=== PATIENT | female | born 1965 | race Caucasian/White ===

== ENCOUNTER 2019-06-23 17:10 | Emergency (ER) | payer BC ==
[2019-06-23 17:36] VITALS: BP 129/78; PULSE 103
[2019-06-23] MEDS ORDERED: FLU Vacc QS2019-20(6MOS+)/PF 60 MCG/0.5 ML SYRINGE IM ONE (17:45)
--- NOTE | 2019-06-23 17:53 | EDM.PDOC ---
ED HPI GENERAL MEDICAL PROBLEM - General Chief Complaint: Genitourinary Problem Stated Complaint: PAINFUL URINATION Time Seen by Provider: 06/23/19 17:32 Source of Information: Reports: Patient, RN Notes Reviewed History Limitations: Reports: No Limitations - History of Present Illness INITIAL COMMENTS - FREE TEXT/NARRATIVE: Patient is a 54-year-old female who presents to the ED for evaluation of a possible UTI. The patient notes that she is prone to getting bladder infections. She further notes that she had a urology workup last year, and there was no further management needed, nor did they relate any information on why she gets frequent UTIs. The patient states that around 1:30 this afternoon she developed dysuria, frequency and urgency, with suprapubic pain. Patient started pushing her fluids this afternoon, and started drinking some cranberry juice but this is not provided much relief. She notes that it feels as if she is being razor blades. She does have multiple allergies to typical antibiotics used for UTIs. The patient denies any sort of fever/chills, nausea/vomiting/ diarrhea, chest pain and shortness of breath. Abdomen Pain Score (Numeric/FACES): 7 - Related Data Allergies Allergy/AdvReac Type Severity Reaction Status Date / Time nitrofurantoin Allergy Hives Verified 06/23/19 17:32 [From Macrodantin] Sulfa (Sulfonamide Allergy Rash Verified 05/23/16 19:10 Antibiotics) sulfamethoxazole Allergy Hives Verified 06/23/19 17:32 [From Bactrim] trimethoprim [From Bactrim] Allergy Hives Verified 06/23/19 17:32 Home Meds: Home Meds Tiotropium Br/Olodaterol HCl [Stiolto Respimat Inhal [place]] 2 puff IH DAILY 03/06 [History] Past Medical History HEENT History: Reports: Impaired Vision Respiratory History: Reports: Other (See Below) Other Respiratory History: chronic bronchitis Gastrointestinal History: Reports: None Genitourinary History: Reports: Renal Calculus, UTI, Recurrent 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: Other (See Below) Other CURRICULUM ASSISTANT History: fertility Musculoskeletal History: Reports: None - Past Surgical History GI Surgical History: Reports: Cholecystectomy Musculoskeletal Surgical History: Reports: Arthroscopic Procedure, Shoulder Surgery Social & Family History - Family History Family Medical History: Noncontributory - Tobacco Use Smoking Status *Q: Never Smoker - Caffeine Use Caffeine Use: Reports: Soda - Recreational Drug Use Recreational Drug Use: No ED ROS GENERAL - Review of Systems Review Of Systems: See Below Constitutional: Denies: Fever, Chills HEENT: Reports: No Symptoms Respiratory: Denies: Shortness of Breath Cardiovascular: Denies: Chest Pain Endocrine: Reports: No Symptoms GI/Abdominal: Reports: Abdominal Pain (suprapubic). Denies: Constipation, Diarrhea, Nausea, Vomiting : Reports: Dysuria, Frequency, Urgency Musculoskeletal: Reports: No Symptoms Skin: Reports: No Symptoms Neurological: Reports: No Symptoms Psychiatric: Reports: No Symptoms ED EXAM, RENAL/ - Physical Exam Exam: See Below Exam Limited By: No Limitations General Appearance: Alert, WD/WN, No Apparent Distress Respiratory/Chest: No Respiratory Distress, Lungs Clear, Normal Breath Sounds, No Accessory Muscle Use, Chest Non-Tender Cardiovascular: Normal Peripheral Pulses, Regular Rate, Rhythm, No Murmur GI/Abdominal: Normal Bowel Sounds, Soft, No Distention, No Mass, Tender ( suprapubic) Extremities: Normal Inspection, Normal Capillary Refill Neurological: Alert, Oriented, Normal Cognition, No Motor/Sensory Deficits Psychiatric: Normal Affect, Normal Mood Skin Exam: Warm, Dry, Intact, Normal Color, No Rash Course - Vital Signs Last Recorded V/S: Last Vital Signs Temp 98.8 F 06/23/19 17:33 Pulse 103 H 06/23/19 17:33 Resp 14 06/23/19 17:33 BP 129/78 06/23/19 17:33 Pulse Ox 96 06/23/19 17:33 - Orders/Labs/Meds Orders: Active Orders 24 hr Category Date Time Status Influenza Vaccine Charge [RC] .DISCHARGE Care 06/23/19 17:39 Active Labs: Laboratory Tests 06/23/19 Range/Units 17:53 Urine Color Light yellow (Yellow) Urine Appearance Slt cloudy H (Clear) Urine pH 6.0 (5.0-8.0) Ur Specific [place] 1.010 (1.005-1.030) Urine Protein 1+ H (Negative) Urine Glucose (UA) Negative (Negative) Urine Ketones Negative (Negative) Urine Occult Blood 3+ H (Negative) Urine Nitrite Negative (Negative) Urine Bilirubin Negative (Negative) Urine Urobilinogen 0.2 (0.2-1.0) Ur Leukocyte Esterase 2+ H (Negative) Urine RBC 0-5 (0-5) /hpf Urine WBC 30-40 H (0-5) /hpf Ur Epithelial Cells 0-5 (0-5) /hpf Urine Bacteria Few (FEW) /hpf Urine Mucus Few (FEW) /hpf Meds: Medications Discontinued Medications Generic Name Dose Route Start Last Admin Trade Name Christo PRN Reason Stop Dose Admin Influenza Virus Vaccine 1 each 06/23/19 17:39 Pharmacy To Dose - Influenza Vaccine IM 06/23/19 17:40 ONETIME ONE Influenza Virus Vaccine 60 mcg 06/23/19 17:45 06/23/19 17:59 Fluzone Quad [id number] Syringe IM 06/23/19 17:46 60 mcg .ONCE ONE Administration - Re-Assessments/Exams Free Text/Narrative Re-Assessment/Exam: 06/23/19 17:53 Patient presents to the ED for evaluation of a possible UTI. Her symptoms are strongly suggestive of UTI at this time, did obtain a urinalysis for confirmation, the urine in the cup at bedside did appear slightly cloudy which is again suggestive for UTI in nature. Will likely place a patient on cephalexin for management of this UTI. The patient will have to be dispensed through the [facility] machine. 06/23/19 18:45 There was a mixup at the lab, and they never received the tubes of the urine for testing. I did grab a sample and Dr. Angel and I did a bedside dipstick, and this did demonstrate she has a hemorrhagic cystitis at this time, we'll treat her with Keflex as above and resubmit the urine for laboratory testing. Will likely be a positive for UTI, will send culture to make sure that we are picking an appropriate antibiotic. 06/23/19 19:36 Laboratory evaluation is done, the patient has been discharged with Keflex for suspected UTI, the UTI as made clinically apparent by the laboratory evaluation done in the lab today. Patient's urine will be sent for culture to make sure the Keflex covers the bacteria causing her UTI. Departure - Departure Time of Disposition: 18:46 Disposition: Home, Self-Care 01 Condition: Fair Clinical Impression: UTI, Urinary tract infectious disease - Discharge Information *PRESCRIPTION DRUG MONITORING PROGRAM REVIEWED*: No *COPY OF PRESCRIPTION DRUG MONITORING REPORT IN PATIENT SERENITY: No Instructions: Urinary Tract Infection, Adult, [id number] Referrals: Rahat Kirkpatrick MD [Primary Care Provider] - Forms: ED Department Discharge Additional Instructions: You were evaluated in the ED today for your possible UTI. You did demonstrate a hemorrhagic cystitis, as made apparent by the bedside dipstick test done in the ED today. Your urine will be sent for culture to make sure that we are picking an appropriate antibiotic. You will be made notified if you should need a change in antibiotics. You have been placed on cephalexin 500 mg twice a day for 7 days. Recommend that you have your urine checked after the course of antibiotics are done to make sure that your infection has cleared. Please return to the ED if your symptoms change or worsen. - My Orders Last 24 Hours: My Active Orders 06/23/19 17:39 Influenza Vaccine Charge [RC] .DISCHARGE - Assessment/Plan Last 24 Hours: My Active Orders 06/23/19 17:39 Influenza Vaccine Charge [RC] .DISCHARGE
== END 2019-06-23 19:00 | disposition home or self-care (01) ==
LOC: JD.ED 17:10
DX: N39.0 Urinary tract infection, site not specified (principal); Z88.1 Allergy status to other antibiotic agents
CPT/HCPCS: 81001; 87086; 87088; 87186; 90686; 99283-25; G0008